=== PATIENT | female | born 1930 | race African-American/Black ===

== ENCOUNTER 2017-08-21 09:10 | Outpatient (CLI) | payer MEDICARE, MEDICAID ==
--- NOTE | 2017-08-21 11:53 | CT ---
CHEST CT SCAN WITHOUT IV CONTRAST: HISTORY: An 86-year-old female with a history of followup pulmonary nodule. COMPARISON: 04/08/[address] scan[address] FINDINGS: On the highest-most image in this study, there is a nodular density seen in the right lower lobe on t he old study. On today's study, there is no evidence for a right pulmonary nodule. There is some li near stranding in the right middle lobe and lingula, evidence for some scarring. 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 No mediastinal mass or adenopathy. No pleural effusion. No pericardial effusion. Visualized upper abdomen is unremarkable. IMPRESSION: Unremarkable chest CT scan. Mild linear stranding consistent with some scarring in the right middle lobe and lingula. The previously noted nodular density seen on the prior CT 04/08/16 of the abdomen i s no longer evident. POS: NIKO
== END 2017-08-21 09:11 | disposition home or self-care (01) ==
LOC: CT 09:10
PROVIDERS: ATTEND Internal Medicine
DX: R91.1 Solitary pulmonary nodule (principal)
CPT/HCPCS: 71250